=== PATIENT | male | born 1990 | race Hispanic/Latino ===

== ENCOUNTER 2023-07-03 21:18 | Emergency (ER) | payer SELFPAY ==
[2023-07-03] MEDS ORDERED: Ketorolac Tromethamine 30 MG (1 mL) VIAL ONE (21:35)
[2023-07-03] MEDS ORDERED: Ondansetron PF 4 MG/2 ML Vial ONE (21:35)
[2023-07-03 21:53] LABS: #Basophils 0.06 10x3/uL (0.0-0.2); #Monocytes 0.78 10x3/uL (0.0-1.1); #Neutrophils 13.76 10x3/uL (1.5-8.4); %Basophils 0.4 % (0.0-2.0); %Eosinophils 0.6 % (0.0-6.0); %Lymphocytes 8.3 % (18.0-47.0); %Monocytes 4.8 % (0.0-10.0); %Neutrophils 85.5 % (40.0-75.0); Hematocrit 47.1 % (38.8-50.0); Hemoglobin 16.7 g/dL (13.5-17.5); Mean Corpuscular HGB CONC 35.5 g/dL (32.0-36.0); Mean Corpuscular Hemoglobin 30.6 pg (27.0-33.0); Mean Corpuscular Volume 86.4 fl (81.2-95.1); Platelet Count 350 10x3/uL (150-450); RBC Distribution Width 12.9 % (11.5-14.5); Red Blood Cell (RBC) Count 5.45 10x6/uL (4.32-5.72); White Blood Cell (WBC) Count 16.1 10x3/uL (3.5-10.5)
[2023-07-03 22:07] LABS: ALT (SGPT) 56 U/L (8-55); AST (SGOT) 38 U/L (5-34); Albumin 6.2 g/dL (3.5-5.0); Alkaline Phosphatase 107 U/L (40-110); Anion Gap 23 mmol/L (10-20); BUN (Urea Nitrogen) 23 mg/dL (8.9-20.6); Bilirubin, Total 0.4 mg/dL (0.2-1.2); CK (CPK) 348 U/L (30-200); Calc. Creatinine Clearance 0 mL/min (70-130); Calcium 11.3 mg/dL (7.8-10.44); Carbon Dioxide 23 mmol/L (22-29); Chloride 95 mmol/L (98-107); Estimated GFR 24; Globulin 4.3 g/dL (2.4-3.5); Glucose 159 mg/dL (70-105); Protein, Total 10.5 g/dL (6.0-8.3); Sodium 137 mmol/L (136-145)
== END 2023-07-04 00:44 | disposition home or self-care (01) ==
LOC: CSHERS 21:18
DX: E86.0 Dehydration (principal); E86.1 Hypovolemia; Z55.6 Problems related to health literacy
CPT/HCPCS: 80053; 82550; 85025; 96361; 96374; 96375; J1885; J2405